=== PATIENT | female | born 1970 | race Two or more races ===

== ENCOUNTER 2017-03-02 08:53 | Emergency (ER) | payer MEDICAID ==
[~2017-03-02] VITALS: Ht 152.4 cm; Wt 72.6 kg
[~2017-03-02 08:53] MED LIST: BENADRYL A12.5 MG/5 ORAL; BENADRYL25 M3 PO; BENADRYL50 MG ORAL; CEPHALEXIN500 MG ORAL; IBUPROFEN600 MG ORAL; IBUPROFEN600 MG PO; NKM; NORCO 5-325 TA1 EACH ORAL; PREDNISONE20 MG ORAL; RANITIDINE HCL150 MG ORAL; REGLAN10 MG ORAL; ROBAXIN500 MG PO
[2017-03-02 08:59] VITALS: BP 116/71
[2017-03-02] MEDS ORDERED: UNOBMED (09:05)
[2017-03-02] MEDS ORDERED: IBUPROFEN600 MG ORAL (09:13)
[2017-03-02] MEDS ORDERED: REGLAN10 MG ORAL (09:13)
[2017-03-02] MEDS ORDERED: AMBIEN5 MG ORAL (09:13)
--- NOTE | 2017-03-02 09:59 | Emergency Room Report ---
History of Present Illness General Chief Complaint: General Complaint Source: Patient Present Illness HPI 46-year-old female presents ED complaining of difficulty sleeping x2 weeks. States she's tried [id number] medications including Benadryl without help. Patient states she has no headache at this time but feels a foggy sensation. Patient has history of migraines. Patient states she feels a lot of stress and feels anxious at that time. Denies any photophobia, blurry vision. Denies any nausea or vomiting. Denies fevers or chills, denies neck stiffness. No other aggravating or relieving factors. Denies any other associated symptoms Allergies: Coded Allergies: No Known Allergies (Unverified , 09/08/12) Patient History Past Medical History: none Past Surgical History: none Pertinent Family History: none Social History: Denies: alcohol use, drug use, smoking Last Menstrual Period: 09/27/16 Now: No : 5 Para: 5 Immunizations: UTD Reviewed Nursing Documentation: PMH: Agreed, PSxH: Agreed Nursing Documentation-PMH Past Medical History: No History, Except For Review of Systems All Other Systems: negative except mentioned in HPI Physical Exam Vital Signs Date Time Temp Pulse Resp B/P Pulse Ox O2 Delivery O2 Flow Rate FiO2 03/02/17 08:59 97.9 60 16 116/71 98 Room Air Sp02 EP Interpretation: reviewed, normal General Appearance: no apparent distress, alert, GCS 15, non-toxic Head: normocephalic, atraumatic Eyes: bilateral eye PERRL, bilateral eye normal inspection ENT: hearing grossly normal, normal pharynx, no angioedema, normal voice Neck: full range of motion, supple/symm/no masses Respiratory: chest non-tender, lungs clear, normal breath sounds, speaking full sentences Cardiovascular #1: regular rate, rhythm, no edema Cardiovascular #2: 2+ carotid (R), 2+ carotid (L), 2+ radial (R), 2+ radial (L) , 2+ dorsalis pedis (R), 2+ dorsalis pedis (L) Gastrointestinal: normal bowel sounds, non tender, soft, non-distended, no guarding, no rebound Rectal: deferred Genitourinary: normal inspection, no CVA tenderness Musculoskeletal: back normal, gait/station normal, normal range of motion, non- tender, calf tenderness Neurologic: alert, oriented x3, responsive, motor strength/tone normal, sensory intact, speech normal Psychiatric: judgement/insight normal, memory normal, anxious Reflexes: 3+ bicep (R), 3+ bicep (L), 3+ tricep (R), 3+ tricep (L), 3+ knee (R) , 3+ knee (L) Skin: normal color, no rash, warm/dry, well hydrated Lymphatic: no adenopathy Medical Decision Making Diagnostic Impression: Primary Impression: Insomnia Qualified Codes: G47.00 - Insomnia, unspecified ER Course 46-year-old female presents to ED complaining of difficulty sleeping x2 weeks. History of migraines. No migraine at this time Differential-psychosis, drug induced, anxiety, headache Patient placed on stretcher. After initial history physical exam reveals a middle-aged female in no acute distress. Head and neck exam unremarkable. No focal neurological deficits. No neck stiffness or meningismal signs. Patient appears anxious from not sleeping. No evidence of suicidal or homicidal ideation. I believe patient will benefit from short-course of Ambien Diagnoses-insomnia Stable and discharged to home with prescription for Ambien, Reglan, Motrin. Followup with PMD. Return to ED if symptoms recur or worsen Last Vital Signs Date Time Temp Pulse Resp B/P Pulse Ox O2 Delivery O2 Flow Rate FiO2 03/02/17 09:22 97.9 60 16 116/71 98 Room Air Status: improved Disposition: HOME, SELF-CARE Condition: Stable Scripts Ibuprofen* (MOTRIN*) 600 Mg Tablet 600 MG ORAL Q8H Y for For Pain, #30 TAB 0 Refills Prov: WAYNE CASTRO M.D. 03/02/17 Metoclopramide Hcl* (REGLAN*) 10 Mg Tablet 10 MG ORAL THREE TIMES A DAY, #15 TAB Prov: WAYNE CASTRO M.D. 03/02/17 Zolpidem Tartrate* (AMBIEN*) 5 Mg Tablet 5 MG ORAL BEDTIME Y for Insomnia, #20 TAB Prov: WAYNE CASTRO M.D. 03/02/17 Referrals: [facility],REFERR[facility] (PCP) Patient Instructions: Insomnia WAYNE CASTRO M.D. Mar 02, 2017 09:59
== END 2017-03-02 09:20 | disposition home or self-care (01) ==
LOC: EMR 09:20
DX: G47.00 Insomnia, unspecified (principal)
CPT/HCPCS: 99284

== ENCOUNTER 2018-06-11 14:26 | Emergency (ER) | payer MEDICAID ==
[~2018-06-11] VITALS: Ht 160 cm; Wt 69.9 kg
[~2018-06-11 14:26] MED LIST changes: +AMBIEN5 MG ORAL; +UNOBMED
[2018-06-11 14:43] VITALS: BP 113/82
[2018-06-11] MEDS ORDERED: AMBIEN10 M1 ORAL (15:04)
--- NOTE | 2018-06-11 15:05 | Emergency Room Report ---
History of Present Illness General Chief Complaint: Generalized Weakness Source: Patient, Medical Record Present Illness HPI 47-year-old female patient presents ER complaining of insomnia for the past 2 weeks. Patient reports that she is only getting about an hour asleep during this time. Reports she has been feeling anxious and has been keeping her from falling asleep. Denies history of anxiety. Denies thoughts of hurting herself or others. Reports that she has been taking melatonin without relief symptoms. Reports that she took another pill that she does not know the name of, was given to her by a friend for insomnia symptoms. Reports history of insomnia symptoms several months ago, was seen here at ER and discharged with Ambien. Reports symptoms resolved at the time, states she did not get a sleep study afterwards because the symptoms went away and her doctor did not refer her. denies head pain, headache, head trauma, syncope, dizziness, vomiting, vision changes. Denies tinnitus or vertigo. Denies fever, chest pain, shortness of breath. Reports history of thyroid problems, states she has hypothyroidism, states that she takes 88 mg of medication a day, does not know the name of medication. Denies vomiting or diarrhea. Denies neck stiffness. Allergies: Coded Allergies: No Known Allergies (Unverified , 06/11/18) Patient History Past Medical History: see triage record Last Menstrual Period: 2 years ago Reviewed Nursing Documentation: PMH: Agreed; PSxH: Agreed Nursing Documentation-PMH Past Medical History: No History, Except For Review of Systems All Other Systems: negative except mentioned in HPI Physical Exam Vital Signs Date Time Temp Pulse Resp B/P (MAP) Pulse Ox O2 Delivery O2 Flow Rate FiO2 06/11/18 14:36 97.8 74 16 113/82 96 Room Air 97.9 Sp02 EP Interpretation: reviewed, normal General Appearance: well appearing, no apparent distress, alert, GCS 15, non- toxic Head: normocephalic, atraumatic Eyes: bilateral eye normal inspection, bilateral eye PERRL ENT: hearing grossly normal, normal pharynx, no angioedema, normal voice, uvula midline, moist mucus membranes Neck: full range of motion, no bony tend Respiratory: lungs clear, normal breath sounds, no rhonchi, no respiratory distress, no accessory muscle use, no wheezing, speaking full sentences Cardiovascular #1: regular rate, rhythm, no edema Gastrointestinal: non tender, soft, no mass, non-distended, no guarding, no rebound Genitourinary: no CVA tenderness Musculoskeletal: back normal, digits/nails normal, gait/station normal, normal range of motion, non-tender Neurologic: alert, oriented x3, responsive, bone density technician III-XII nml as tested, motor strength/tone normal, sensory intact, cerebellar normal, normal gait, speech normal Psychiatric: mood/affect normal Skin: no rash Lymphatic: no adenopathy Medical Decision Making PA Attestation Dr. Gross is my supervising Physician whom patient management has been discussed with. Diagnostic Impression: Primary Impression: Insomnia ER Course Pt. presents to the ED c/o insomnia x 2weeks. Ddx considered but are not limited to stress, anxiety, insomnia, psychosis, thyroid problem, medication problem, drug use. will check TSH and free T4 to rule out thyroid problem. Vital signs: are WNL, pt. is afebrile ER COURSE: Physical exam benign, lungs clear to auscultation, no abdominal tenderness to palpation, no focal deficits, cranial nerves intact as tested. TSH and Free T4 within normal limits. discuss thyroid medication with primary care provider. advised patient to follow-up with primary care provider to discuss insomnia symptoms and need for sleep study. advise patient on sleep hygiene habits. follow-up with mental professional discuss anxiety symptoms.provide with contact information for mental health urgent care. does not take medication that is not prescribed to you. ER precautions given. DISCHARGE: Rx provided for NATE Simpson reviewed. At this time pt is stable for d/c to home. Patient is resting comfortably, in no acute distress, nontoxic appearing, talking without difficulty. Patient to take medications as instructed Will provide with patient care instructions and any necessary prescriptions. Care plan and follow-up instructions provided. Patient instructed to follow-up with primary care provider in 3 - 5 days. Patient questions asked and answered. Patient reports understanding and agreement to treatment plan. ER precautions given. Patient instructed to return to ER immediately for any new or worsening of symptoms including but not limited to increasing SOB, persistent fever, chest pain, intractable vomiting. - Please note that this Emergency Department Report was dictated using [employer] stam[employer] software, occasionally this can lead to erroneous entry secondary to interpretation by the dictation equipment. Last Vital Signs Date Time Temp Pulse Resp B/P (MAP) Pulse Ox O2 Delivery O2 Flow Rate FiO2 10/16/18 14:43 97.9 16 113/82 96 Room Air 97.9 06/11/18 14:36 74 Disposition: HOME, SELF-CARE Condition: Stable Scripts Zolpidem Tartrate* (AMBIEN*) 10 Mg Tablet 10 MG ORAL HS PRN for Insomnia, #10 TAB Prov: Percy Jordan 06/11/18 Patient Instructions: Generalized Anxiety Disorder, Insomnia Additional Instructions: Followup with primary care provider in 3 -5 days. Discuss referral to sleep study and/or sleep specialist. Advised on good sleep hygiene habits. Do not take medications prior to my others, take medications only when prescribed to by primary care provider. Discuss referral to mental health professional for anxiety symptoms. Discuss thyroid medication. Take medications as directed. Patient questions asked and answered. ER precautions given, patient instructed to return to ER immediately for any new or worsening of symptoms. Percy Jordan Jun 11, 2018 15:05
[2018-06-11 16:16] VITALS: BP 113/82
[2018-06-11] MEDS ORDERED: Acetaminophen 500mg (ES) tab ORAL ONE (16:29)
== END 2018-06-11 16:16 | disposition home or self-care (01) ==
LOC: EMR 15:52
DX: G47.00 Insomnia, unspecified (principal)
CPT/HCPCS: 36415; 84439; 84443; 99283